=== PATIENT | female | born 1960 | race Caucasian/White ===

== ENCOUNTER 2016-05-04 14:59 | Outpatient (CLI) | payer OTHER ==
--- NOTE | 2016-05-04 17:08 | DIAGNOSTIC IMAGING REPORT ---
PROCEDURE: US SOFT TISSUE ANYWHERE INDICATION: Palpable area and discomfort left axilla. History of left breast carcinoma. TECHNIQUE: Molina scale and color Doppler sonographic images of the left axilla were obtained COMPARISON: None. FINDINGS: Left axillary soft tissues are normal. There is no evidence of mass or adenopathy. IMPRESSION: 1. Normal ultrasound of the left axilla. 2. Findings discussed with the patient.
== END 2016-05-04 23:00 ==
LOC: US SRH 14:59
DX: Z85.3 Personal history of malignant neoplasm of breast (principal); R22.9 Localized swelling, mass and lump, unspecified

== ENCOUNTER 2016-08-10 15:18 | Outpatient (CLI) | payer OTHER ==
--- NOTE | 2016-08-10 19:57 | DIAGNOSTIC IMAGING REPORT ---
PROCEDURE: MG BILATERAL SCREENING W/CAD INDICATION: SCREENING, HISTORY OF BREAST CANCER TECHNIQUE: Standard CC and MLO views bilaterally. Computer aided detection was used. COMPARISON: 08/17/2015, 08/04/2014, 07/21/2014 FINDINGS: Moderately dense fibroglandular tissue is present bilaterally. Focal surgical clips in the upper outer deep left breast of prior lumpectomy. Skin thickening over the upper left breast of prior radiation. No developing densities, areas of architectural distortion, or suspicious microcalcifications. IMPRESSION: 1. Stable mammograms without radiographic evidence of malignancy. 2. Treatment changes of left breast cancer. RESULT CODE: 2- Benign findings. A. A negative report should not delay biopsy if a dominant or clinically suspicious mass is present. 10-15% of cancers are not identified by x-ray. B. A negative report may reinforce clinical impression. C. Adenosis and dense breasts may obscure an underlying neoplasm. D. False positive reports average 6-10%. E.. A yearly screening mammogram is recommended. A reminder letter will be scheduled.
== END 2016-08-10 23:00 ==
LOC: MAM SRH 15:18
DX: Z12.31 Encounter for screening mammogram for malignant neoplasm of breast (principal)